=== PATIENT | male | born 1945 | race Caucasian/White ===

== ENCOUNTER 2022-04-01 17:42 | Inpatient (IN) ==
[2022-04-01] MEDS ORDERED: Nitroglycerin 0.4 MG TAB.SUBL SL PRN (17:54)
[2022-04-01] MEDS: Ipratropium/Albuterol Neb 3 ML IH SCH (21:13)
[2022-04-01] MEDS: *HR* OxyCODONE Immed Rel 5 MG TABLET PO PRN (21:40)
[2022-04-02] MEDS: Ipratropium/Albuterol Neb 3 ML IH SCH ×6 (00:30→20:37)
[2022-04-02 07:44] LABS: Basophils # 0.1 K/mcL (0.0-0.2); Basophils % 1.1 %; Eosinophils # 0.3 K/mcL (0.0-0.6); Eosinophils % 4.1 %; Hematocrit 35.7 % (37.5-50.1); Hemoglobin 11.9 g/dL (12.9-16.9); Immature Granulocytes % 2.9 % (0-4); Lymphocytes # 0.9 K/mcL (0.6-4.6); Lymphocytes % 13.3 %; Mean Corpuscular HGB Conc 33.3 g/dL (31.6-35.5); Mean Platelet Volume 9.7 fL (9.4-12.4); Monocytes # 0.6 K/mcL (0.0-1.3); Monocytes % 8.6 %; Neutrophils # 4.6 K/mcL (1.6-8.9); Platelet Count 137 K/mcL (140-400); Red Blood Count 3.72 M/mcL (4.19-5.50); Red Cell Distribution Width 14.2 % (11.5-14.5); White Blood Count 6.6 K/mcL (4.3-11.1)
[2022-04-02 07:57] LABS: BUN/Creatinine Ratio 21 (6-26); Blood Urea Nitrogen 23 mg/dL (8-23); Calcium 8.7 mg/dL (8.6-10.3); Carbon Dioxide 33 mEq/L (23-29); Chloride 101 mEq/L (98-107); Glucose 114 mg/dL (70-105); Osmolality,Calculated 291 (280-300); Potassium 4.3 mEq/L (3.5-5.1); Sodium 138 mEq/L (136-145); eGFR For African Americans > 60 (> 60); eGFR For Non-African Americans > 60 (> 60)
[2022-04-02] MEDS: Cholecalciferol (D-3) 1,000 UNIT (25MCG) TABLET PO SCH (08:18)
[2022-04-02] MEDS ORDERED: Bisacodyl 10 MG RECTAL SUPPOSITORY RC PRN (08:18)
[2022-04-02] MEDS: Aspirin Enteric Coated 81 MG Tablet PO SCH (08:18)
[2022-04-02] MEDS: Isosorbide MONOnitrate (24 HR) 30 MG TAB.ER.24H PO SCH (08:19)
[2022-04-02] MEDS: Cyanocobalamin (B-12) 1,000 MCG TABLET PO SCH (08:19)
[2022-04-02] MEDS: Zinc Sulfate 220 MG CAPSULE PO SCH (08:19)
[2022-04-02] MEDS: *HR* OxyCODONE Immed Rel 5 MG TABLET PO PRN ×2 (08:20→21:42)
[2022-04-02] MEDS: lisinopriL 10 MG TABLET PO SCH (08:20)
[2022-04-02] MEDS ORDERED: polyethylene glycoL 3350 17 GM POWD.PACK PO SCH (09:00)
[2022-04-02] MEDS: Sennosides/Docusate Sodium TABLET PO SCH ×2 (10:20→21:42)
[2022-04-02] MEDS: Acetaminophen 325 MG TABLET PO PRN (15:55)
[2022-04-02] MEDS: polyethylene glycoL 3350 17 GM POWD.PACK PO SCH (21:43)
[2022-04-03] MEDS: Ipratropium/Albuterol Neb 3 ML IH SCH ×7 (00:05→23:56)
[2022-04-03] MEDS: *HR* Enoxaparin 40 MG/0.4 ML SYRINGE SQ SCH (06:17)
[2022-04-03] MEDS: Cyanocobalamin (B-12) 1,000 MCG TABLET PO SCH (10:44)
[2022-04-03] MEDS: Zinc Sulfate 220 MG CAPSULE PO SCH (10:44)
[2022-04-03] MEDS: Isosorbide MONOnitrate (24 HR) 30 MG TAB.ER.24H PO SCH (10:45)
[2022-04-03] MEDS: Aspirin Enteric Coated 81 MG Tablet PO SCH (10:45)
[2022-04-03] MEDS: Cholecalciferol (D-3) 1,000 UNIT (25MCG) TABLET PO SCH (10:46)
[2022-04-03] MEDS: polyethylene glycoL 3350 17 GM POWD.PACK PO SCH ×2 (10:46→21:41)
[2022-04-03] MEDS: Sennosides/Docusate Sodium TABLET PO SCH ×2 (10:46→21:41)
[2022-04-03] MEDS: lisinopriL 10 MG TABLET PO SCH (10:50)
[2022-04-03] MEDS: *HR* OxyCODONE Immed Rel 5 MG TABLET PO PRN (16:23)
[2022-04-04] MEDS: Ipratropium/Albuterol Neb 3 ML IH SCH ×6 (04:20→23:55)
[2022-04-04] MEDS: *HR* Enoxaparin 40 MG/0.4 ML SYRINGE SQ SCH (05:47)
[2022-04-04] MEDS: Aspirin Enteric Coated 81 MG Tablet PO SCH (08:47)
[2022-04-04] MEDS: Zinc Sulfate 220 MG CAPSULE PO SCH (08:47)
[2022-04-04] MEDS: Sennosides/Docusate Sodium TABLET PO SCH ×2 (08:47→21:56)
[2022-04-04] MEDS: Isosorbide MONOnitrate (24 HR) 30 MG TAB.ER.24H PO SCH (08:47)
[2022-04-04] MEDS: Cyanocobalamin (B-12) 1,000 MCG TABLET PO SCH (08:48)
[2022-04-04] MEDS: lisinopriL 10 MG TABLET PO SCH (08:48)
[2022-04-04] MEDS: Cholecalciferol (D-3) 1,000 UNIT (25MCG) TABLET PO SCH (08:48)
[2022-04-04] MEDS: polyethylene glycoL 3350 17 GM POWD.PACK PO SCH ×2 (08:49→22:04)
[2022-04-04] MEDS: *HR* OxyCODONE Immed Rel 5 MG TABLET PO PRN (13:10)
[2022-04-04] MEDS: Acetaminophen 325 MG TABLET PO PRN (22:02)
[2022-04-04] MEDS: Melatonin 3 MG TABLET PO PRN (22:02)
[2022-04-05] MEDS: Ipratropium/Albuterol Neb 3 ML IH SCH ×5 (03:46→21:49)
[2022-04-05] MEDS: *HR* Enoxaparin 40 MG/0.4 ML SYRINGE SQ SCH (05:53)
[2022-04-05] MEDS: Aspirin Enteric Coated 81 MG Tablet PO SCH (09:51)
[2022-04-05] MEDS: Cholecalciferol (D-3) 1,000 UNIT (25MCG) TABLET PO SCH (09:52)
[2022-04-05] MEDS: Isosorbide MONOnitrate (24 HR) 30 MG TAB.ER.24H PO SCH (09:52)
[2022-04-05] MEDS: lisinopriL 10 MG TABLET PO SCH (09:52)
[2022-04-05] MEDS: polyethylene glycoL 3350 17 GM POWD.PACK PO SCH ×2 (09:53→20:36)
[2022-04-05] MEDS: Sennosides/Docusate Sodium TABLET PO SCH ×2 (09:53→20:29)
[2022-04-05] MEDS: Zinc Sulfate 220 MG CAPSULE PO SCH (09:53)
[2022-04-05] MEDS: Cyanocobalamin (B-12) 1,000 MCG TABLET PO SCH (09:53)
[2022-04-05] MEDS: Acetaminophen 325 MG TABLET PO PRN (20:29)
[2022-04-05] MEDS: Melatonin 3 MG TABLET PO PRN (20:30)
[2022-04-05] MEDS: *HR* OxyCODONE Immed Rel 5 MG TABLET PO PRN (20:39)
[2022-04-06] MEDS: Ipratropium/Albuterol Neb 3 ML IH SCH ×4 (03:52→22:45)
[2022-04-06] MEDS: *HR* Enoxaparin 40 MG/0.4 ML SYRINGE SQ SCH (05:21)
[2022-04-06] MEDS: Cholecalciferol (D-3) 1,000 UNIT (25MCG) TABLET PO SCH (09:42)
[2022-04-06] MEDS: Aspirin Enteric Coated 81 MG Tablet PO SCH (09:42)
[2022-04-06] MEDS: Zinc Sulfate 220 MG CAPSULE PO SCH (09:42)
[2022-04-06] MEDS: Isosorbide MONOnitrate (24 HR) 30 MG TAB.ER.24H PO SCH (09:42)
[2022-04-06] MEDS: Cyanocobalamin (B-12) 1,000 MCG TABLET PO SCH (09:42)
[2022-04-06] MEDS: *HR* OxyCODONE Immed Rel 5 MG TABLET PO PRN (09:43)
[2022-04-06] MEDS: Sennosides/Docusate Sodium TABLET PO SCH ×2 (09:43→19:49)
[2022-04-06] MEDS: lisinopriL 10 MG TABLET PO SCH (09:44)
[2022-04-06] MEDS: polyethylene glycoL 3350 17 GM POWD.PACK PO SCH ×2 (09:45→19:49)
[2022-04-06] MEDS: Venlafaxine XR (24 HR) 37.5 MG CAP.ER.24H PO SCH (13:40)
[2022-04-07] MEDS: Melatonin 3 MG TABLET PO PRN ×2 (02:18→20:27)
[2022-04-07] MEDS: Ipratropium/Albuterol Neb 3 ML IH SCH ×2 (04:12→08:30)
[2022-04-07] MEDS: *HR* Enoxaparin 40 MG/0.4 ML SYRINGE SQ SCH (05:54)
[2022-04-07] MEDS ORDERED: Ipratropium/Albuterol Neb 3 ML IH PRN (09:26)
[2022-04-07] MEDS: Aspirin Enteric Coated 81 MG Tablet PO SCH (10:03)
[2022-04-07] MEDS: Venlafaxine XR (24 HR) 37.5 MG CAP.ER.24H PO SCH (10:04)
[2022-04-07] MEDS: lisinopriL 10 MG TABLET PO SCH (10:04)
[2022-04-07] MEDS: Cyanocobalamin (B-12) 1,000 MCG TABLET PO SCH (10:04)
[2022-04-07] MEDS: Cholecalciferol (D-3) 1,000 UNIT (25MCG) TABLET PO SCH (10:04)
[2022-04-07] MEDS: Isosorbide MONOnitrate (24 HR) 30 MG TAB.ER.24H PO SCH (10:04)
[2022-04-07] MEDS: Zinc Sulfate 220 MG CAPSULE PO SCH (10:04)
[2022-04-07] MEDS: Sennosides/Docusate Sodium TABLET PO SCH ×2 (10:04→20:26)
[2022-04-07] MEDS: polyethylene glycoL 3350 17 GM POWD.PACK PO SCH ×2 (10:05→20:26)
[2022-04-07 11:50] LABS: Basophils # 0.1 K/mcL (0.0-0.2); Basophils % 1.3 %; Eosinophils # 0.7 K/mcL (0.0-0.6); Eosinophils % 6.5 %; Hematocrit 39.4 % (37.5-50.1); Hemoglobin 13.1 g/dL (12.9-16.9); Immature Granulocytes % 3.8 % (0-4); Lymphocytes % 10.1 %; Mean Corpuscular HGB Conc 33.2 g/dL (31.6-35.5); Mean Corpuscular Hemoglobin 31.6 pg (28.0-33.3); Mean Corpuscular Volume 94.9 fL (83.0-100.0); Mean Platelet Volume 9.3 fL (9.4-12.4); Monocytes # 0.7 K/mcL (0.0-1.3); Monocytes % 7.2 %; Neutrophils # 7.1 K/mcL (1.6-8.9); Platelet Count 182 K/mcL (140-400); Red Blood Count 4.15 M/mcL (4.19-5.50); Red Cell Distribution Width 13.9 % (11.5-14.5); Segmented Neutrophils % 71.1 %
[2022-04-07 12:06] LABS: Alanine Aminotransferase 19 Units/L (7-52); Albumin 3.9 g/dL (3.5-5.7); Albumin/Globulin Ratio 1.1 (1.1-2.2); Alkaline Phosphatase 99 Units/L (34-104); Aspartate Amino Transferase 28 Units/L (13-39); BUN/Creatinine Ratio 19 (6-26); Blood Urea Nitrogen 23 mg/dL (8-23); Calcium 9.3 mg/dL (8.6-10.3); Carbon Dioxide 31 mEq/L (23-29); Chloride 101 mEq/L (98-107); Globulin 3.6 g/dL (2.4-3.5); Glucose 91 mg/dL (70-105); Osmolality,Calculated 289 (280-300); Potassium 4.8 mEq/L (3.5-5.1); Sodium 138 mEq/L (136-145); Total Protein 7.5 g/dL (6.4-8.9); eGFR For African Americans > 60 (> 60); eGFR For Non-African Americans 58 (> 60)
[2022-04-07 16:36] LABS: Ferritin 215 ng/mL (20-250)
[2022-04-08] MEDS: *HR* Enoxaparin 40 MG/0.4 ML SYRINGE SQ SCH (07:14)
[2022-04-08] MEDS: Cyanocobalamin (B-12) 1,000 MCG TABLET PO SCH (09:41)
[2022-04-08] MEDS: Aspirin Enteric Coated 81 MG Tablet PO SCH (09:41)
[2022-04-08] MEDS: Zinc Sulfate 220 MG CAPSULE PO SCH (09:41)
[2022-04-08] MEDS: Cholecalciferol (D-3) 1,000 UNIT (25MCG) TABLET PO SCH (09:41)
[2022-04-08] MEDS: polyethylene glycoL 3350 17 GM POWD.PACK PO SCH ×2 (09:43→21:28)
[2022-04-08] MEDS: Venlafaxine XR (24 HR) 37.5 MG CAP.ER.24H PO SCH (09:43)
[2022-04-08] MEDS: lisinopriL 10 MG TABLET PO SCH (09:43)
[2022-04-08] MEDS: Sennosides/Docusate Sodium TABLET PO SCH ×2 (09:43→21:27)
[2022-04-08] MEDS: Isosorbide MONOnitrate (24 HR) 30 MG TAB.ER.24H PO SCH (09:43)
[2022-04-08] MEDS: Melatonin 3 MG TABLET PO PRN (21:27)
[2022-04-09] MEDS: *HR* Enoxaparin 40 MG/0.4 ML SYRINGE SQ SCH (06:05)
[2022-04-09 06:44] LABS: Basophils # 0.1 K/mcL (0.0-0.2); Basophils % 1.5 %; Eosinophils # 0.7 K/mcL (0.0-0.6); Eosinophils % 7.9 %; Hematocrit 36.2 % (37.5-50.1); Immature Granulocytes % 2.2 % (0-4); Lymphocytes # 0.9 K/mcL (0.6-4.6); Lymphocytes % 11.4 %; Mean Corpuscular HGB Conc 33.1 g/dL (31.6-35.5); Mean Corpuscular Hemoglobin 31.7 pg (28.0-33.3); Mean Corpuscular Volume 95.5 fL (83.0-100.0); Mean Platelet Volume 9.7 fL (9.4-12.4); Monocytes # 0.5 K/mcL (0.0-1.3); Monocytes % 5.9 %; Neutrophils # 5.9 K/mcL (1.6-8.9); Platelet Count 169 K/mcL (140-400); Red Blood Count 3.79 M/mcL (4.19-5.50); Red Cell Distribution Width 14.1 % (11.5-14.5); Segmented Neutrophils % 71.1 %; White Blood Count 8.3 K/mcL (4.3-11.1)
[2022-04-09 07:07] LABS: BUN/Creatinine Ratio 18 (6-26); Blood Urea Nitrogen 24 mg/dL (8-23); Carbon Dioxide 29 mEq/L (23-29); Chloride 103 mEq/L (98-107); Glucose 111 mg/dL (70-105); Osmolality,Calculated 291 (280-300); Potassium 4.4 mEq/L (3.5-5.1); Sodium 138 mEq/L (136-145); eGFR For African Americans > 60 (> 60); eGFR For Non-African Americans 54 (> 60)
[2022-04-09] MEDS: Zinc Sulfate 220 MG CAPSULE PO SCH (09:31)
[2022-04-09] MEDS: Isosorbide MONOnitrate (24 HR) 30 MG TAB.ER.24H PO SCH (09:35)
[2022-04-09] MEDS: Venlafaxine XR (24 HR) 37.5 MG CAP.ER.24H PO SCH (09:35)
[2022-04-09] MEDS: Cyanocobalamin (B-12) 1,000 MCG TABLET PO SCH (09:35)
[2022-04-09] MEDS: Aspirin Enteric Coated 81 MG Tablet PO SCH (09:35)
[2022-04-09] MEDS: lisinopriL 10 MG TABLET PO SCH (09:35)
[2022-04-09] MEDS: Cholecalciferol (D-3) 1,000 UNIT (25MCG) TABLET PO SCH (09:35)
[2022-04-09] MEDS: Sennosides/Docusate Sodium TABLET PO SCH ×2 (09:35→20:28)
[2022-04-09] MEDS: polyethylene glycoL 3350 17 GM POWD.PACK PO SCH ×2 (09:36→20:32)
[2022-04-09] MEDS: Melatonin 3 MG TABLET PO PRN (20:28)
[2022-04-10] MEDS: *HR* Enoxaparin 40 MG/0.4 ML SYRINGE SQ SCH (06:01)
[2022-04-10] MEDS: Zinc Sulfate 220 MG CAPSULE PO SCH (08:50)
[2022-04-10] MEDS: Cyanocobalamin (B-12) 1,000 MCG TABLET PO SCH (08:50)
[2022-04-10] MEDS: Sennosides/Docusate Sodium TABLET PO SCH ×2 (08:50→21:43)
[2022-04-10] MEDS: Isosorbide MONOnitrate (24 HR) 30 MG TAB.ER.24H PO SCH (08:51)
[2022-04-10] MEDS: Aspirin Enteric Coated 81 MG Tablet PO SCH (08:51)
[2022-04-10] MEDS: lisinopriL 10 MG TABLET PO SCH (08:51)
[2022-04-10] MEDS: Cholecalciferol (D-3) 1,000 UNIT (25MCG) TABLET PO SCH (08:52)
[2022-04-10] MEDS: Venlafaxine XR (24 HR) 37.5 MG CAP.ER.24H PO SCH (08:52)
[2022-04-10] MEDS: polyethylene glycoL 3350 17 GM POWD.PACK PO SCH ×2 (08:52→21:44)
[2022-04-10] MEDS: Melatonin 3 MG TABLET PO PRN (23:42)
[2022-04-11] MEDS: *HR* Enoxaparin 40 MG/0.4 ML SYRINGE SQ SCH (06:30)
[2022-04-11] MEDS: Cholecalciferol (D-3) 1,000 UNIT (25MCG) TABLET PO SCH (11:19)
[2022-04-11] MEDS: Aspirin Enteric Coated 81 MG Tablet PO SCH (11:19)
[2022-04-11] MEDS: Cyanocobalamin (B-12) 1,000 MCG TABLET PO SCH (11:19)
[2022-04-11] MEDS: Sennosides/Docusate Sodium TABLET PO SCH ×2 (11:20→20:46)
[2022-04-11] MEDS: Isosorbide MONOnitrate (24 HR) 30 MG TAB.ER.24H PO SCH (11:20)
[2022-04-11] MEDS: Zinc Sulfate 220 MG CAPSULE PO SCH (11:20)
[2022-04-11] MEDS: Venlafaxine XR (24 HR) 37.5 MG CAP.ER.24H PO SCH (11:21)
[2022-04-11] MEDS: lisinopriL 10 MG TABLET PO SCH (11:21)
[2022-04-11] MEDS: polyethylene glycoL 3350 17 GM POWD.PACK PO SCH ×2 (11:32→20:43)
[2022-04-11] MEDS: Melatonin 3 MG TABLET PO PRN (20:46)
[2022-04-11] MEDS ORDERED: Melatonin 3 MG TABLET PO ONE (23:40)
[2022-04-12] MEDS: *HR* Enoxaparin 40 MG/0.4 ML SYRINGE SQ SCH (06:24)
[2022-04-12] MEDS: lisinopriL 10 MG TABLET PO SCH (10:34)
[2022-04-12] MEDS: Aspirin Enteric Coated 81 MG Tablet PO SCH (10:35)
[2022-04-12] MEDS: Cyanocobalamin (B-12) 1,000 MCG TABLET PO SCH (10:35)
[2022-04-12] MEDS: Venlafaxine XR (24 HR) 37.5 MG CAP.ER.24H PO SCH (10:36)
[2022-04-12] MEDS: Cholecalciferol (D-3) 1,000 UNIT (25MCG) TABLET PO SCH (10:36)
[2022-04-12] MEDS: Sennosides/Docusate Sodium TABLET PO SCH ×2 (10:37→22:34)
[2022-04-12] MEDS: Isosorbide MONOnitrate (24 HR) 30 MG TAB.ER.24H PO SCH (10:37)
[2022-04-12] MEDS: Zinc Sulfate 220 MG CAPSULE PO SCH (10:37)
[2022-04-12] MEDS: polyethylene glycoL 3350 17 GM POWD.PACK PO SCH ×2 (10:37→22:34)
[2022-04-12] MEDS: Melatonin 3 MG TABLET PO PRN (22:49)
[2022-04-13] MEDS: *HR* Enoxaparin 40 MG/0.4 ML SYRINGE SQ SCH (06:42)
[2022-04-13 07:19] VITALS: BP 126/66; PULSE 71; RESP 17; TEMP 97.7; O2SAT 98
[2022-04-13] MEDS: Sennosides/Docusate Sodium TABLET PO SCH (08:16)
[2022-04-13] MEDS: Isosorbide MONOnitrate (24 HR) 30 MG TAB.ER.24H PO SCH (08:16)
[2022-04-13] MEDS: lisinopriL 10 MG TABLET PO SCH (08:17)
[2022-04-13] MEDS: Venlafaxine XR (24 HR) 37.5 MG CAP.ER.24H PO SCH (08:17)
[2022-04-13] MEDS: Zinc Sulfate 220 MG CAPSULE PO SCH (08:17)
[2022-04-13] MEDS: Cyanocobalamin (B-12) 1,000 MCG TABLET PO SCH (08:17)
[2022-04-13] MEDS: Aspirin Enteric Coated 81 MG Tablet PO SCH (08:17)
[2022-04-13] MEDS: Cholecalciferol (D-3) 1,000 UNIT (25MCG) TABLET PO SCH (08:17)
[2022-04-13] MEDS: polyethylene glycoL 3350 17 GM POWD.PACK PO SCH (08:18)
== END 2022-04-13 12:00 | disposition home or self-care (01) | DRG 199 ==
LOC: INPPIK 19:10
PROVIDERS: ADMIT Family Medicine; ATTEND Family Medicine